=== PATIENT | male | born 1980 | race Two or more races ===

== ENCOUNTER 2021-06-22 19:58 | Emergency (ER) | payer MEDICAID, OTHER ==
[~2021-06-22] VITALS: Ht 175.3 cm; Wt 102.1 kg
[2021-06-22 20:12] VITALS: BP 145/96
[2021-06-22 22:01] LABS: Basophils # (auto) 0 10 ^3/uL (0-0.2); Basophils % (auto) 0.3 % (0.0-2.0); Eosinophils # (auto) 0 10 ^3/uL (0-0.8); Hemoglobin 13.7 g/dL (13.5-17.5); Lymphocytes # (auto) 1.1 10 ^3/uL (0.4-5.4); Lymphocytes % (auto) 8.6 % (10.0-50.0); Mean Corpuscular Hemoglobin 31.3 pg (28.0-32.0); Mean Corpuscular Hgb Conc. 33.6 g/dL (32.0-36.0); Mean Corpuscular Volume 93.2 fL (80.0-100.0); Monocytes # (auto) 0.4 10 ^3/uL (0-1.3); Monocytes % (auto) 3.1 % (0.0-12.0); Neutrophils # (auto) 10.7 10 ^3/uL (1.6-8.6); Red Cell Distribution Width 13.6 % (11.8-14.3); White Blood Cell 12.2 10^3/uL (4.4-10.8)
[2021-06-22 22:17] LABS: Calcium 8.6 mg/dL (8.5-10.1); Potassium 4.8 mmol/L (3.5-5.1)
[2021-06-22 22:20] LABS: Albumin 3.8 g/dL (3.4-5.0); BUN/Creatinine Ratio 14.4; Magnesium 2.2 mg/dL (1.6-2.6)
[2021-06-22 22:23] LABS: Bilirubin, Total 0.3 mg/dL (0.2-1.0); Total Protein 7.5 g/dL (6.4-8.2)
== END 2021-06-22 22:13 | disposition left against medical advice (07) ==
LOC: ER 20:00
DX: T40.411A Poisoning by fentanyl or fentanyl analogs, accidental (unintentional), initial encounter (principal); F12.10 Cannabis abuse, uncomplicated; F15.10 Other stimulant abuse, uncomplicated; F11.10 Opioid abuse, uncomplicated; Y92.89 Other specified places as the place of occurrence of the external cause; Z53.29 Procedure and treatment not carried out because of patient's decision for other reasons
CPT/HCPCS: 36415; 80053; 80320; 82550; 83735; 85025

== ENCOUNTER → 2021-12-01 | Emergency (ER) | payer SELFPAY ==
[~2021-12-01] VITALS: Ht 175.3 cm; Wt 102.1 kg
[~2021-12-01] MED LIST: CEPH500C PO; IBUP800T27 PO; SULF400T11 PO
[2021-12-01 18:03] VITALS: BP 142/88
== END | disposition left against medical advice (07) ==
LOC: ER 17:57
DX: L02.611 Cutaneous abscess of right foot (principal); Z53.21 Procedure and treatment not carried out due to patient leaving prior to being seen by health care provider

== ENCOUNTER 2021-12-02 15:34 | Emergency (ER) | payer SELFPAY ==
[~2021-12-02] VITALS: Ht 175.3 cm; Wt 102.1 kg
[2021-12-02] MEDS ORDERED: SULF400T11 PO (15:55)
[2021-12-02] MEDS ORDERED: CEPH500C PO (15:55)
[2021-12-02] MEDS ORDERED: IBUP800T27 PO (15:56)
[2021-12-02 15:57] VITALS: BP 120/92
== END 2021-12-02 16:03 | disposition home or self-care (01) ==
LOC: ER 15:37
DX: S80.862A Insect bite (nonvenomous), left lower leg, initial encounter (principal); S80.861A Insect bite (nonvenomous), right lower leg, initial encounter; F12.10 Cannabis abuse, uncomplicated; F15.10 Other stimulant abuse, uncomplicated; F11.10 Opioid abuse, uncomplicated; F17.200 Nicotine dependence, unspecified, uncomplicated; W57.XXXA Bitten or stung by nonvenomous insect and other nonvenomous arthropods, initial encounter; Y93.89 Activity, other specified; Y92.89 Other specified places as the place of occurrence of the external cause; Y99.8 Other external cause status

== ENCOUNTER 2021-12-17 09:04 | Emergency (ER) | payer SELFPAY ==
[~2021-12-17] VITALS: Ht 175.3 cm; Wt 102.1 kg
[2021-12-17] MEDS ORDERED: cefTRIAXone SOD 1,000 MG VL IM ONE ×2 (09:45)
[2021-12-17] MEDS ORDERED: LIDOCAINE 1% HCL (LOCAL ANESTH.) INJ 20ML MDV ONE (09:46)
[2021-12-17 09:59] VITALS: BP 133/90
== END 2021-12-17 10:06 | disposition home or self-care (01) ==
LOC: ER 09:04
DX: S80.862A Insect bite (nonvenomous), left lower leg, initial encounter (principal); S80.861A Insect bite (nonvenomous), right lower leg, initial encounter; F12.10 Cannabis abuse, uncomplicated; F15.10 Other stimulant abuse, uncomplicated; W57.XXXA Bitten or stung by nonvenomous insect and other nonvenomous arthropods, initial encounter; Y93.89 Activity, other specified; Y92.89 Other specified places as the place of occurrence of the external cause; Y99.8 Other external cause status
CPT/HCPCS: 96372; 99284; J0696; J2001

== ENCOUNTER 2022-01-30 15:07 | Emergency (ER) | payer SELFPAY ==
[~2022-01-30] VITALS: Ht 175.3 cm; Wt 102.1 kg
[2022-01-30 15:11] VITALS: BP 113/95
== END 2022-01-30 16:25 | disposition left against medical advice (07) ==
LOC: ER 15:07
DX: T17.228A Food in pharynx causing other injury, initial encounter (principal); Z53.21 Procedure and treatment not carried out due to patient leaving prior to being seen by health care provider; X58.XXXA Exposure to other specified factors, initial encounter; Y93.89 Activity, other specified; Y92.9 Unspecified place or not applicable; Y99.9 Unspecified external cause status
CPT/HCPCS: 70360

== ENCOUNTER 2022-01-31 16:49 | Emergency (ER) | payer SELFPAY ==
[~2022-01-31] VITALS: Ht 175.3 cm; Wt 102.1 kg
[2022-01-31 17:06] VITALS: BP 144/99
== END 2022-01-31 20:16 | disposition home or self-care (01) ==
LOC: ER 16:49
DX: J02.9 Acute pharyngitis, unspecified (principal)

== ENCOUNTER 2022-08-09 12:23 | Emergency (ER) | payer SELFPAY ==
[~2022-08-09] VITALS: Ht 175.3 cm; Wt 82.0 kg
[2022-08-09 12:59] VITALS: BP 146/91
[2022-08-09 14:01] LABS: Basophils # (auto) 0 10 ^3/uL (0-0.2); Eosinophils # (auto) 0.1 10 ^3/uL (0-0.8)
[2022-08-09 14:02] LABS: Basophils % (auto) 0.2 % (0.0-2.0); Eosinophils % (auto) 1.2 % (0.0-7.0); Hematocrit 38.9 % (41.0-53.0); Hemoglobin 13.3 g/dL (13.5-17.5); Lymphocytes # (auto) 2.1 10 ^3/uL (0.4-5.4); Lymphocytes % (auto) 28.3 % (10.0-50.0); Mean Corpuscular Hemoglobin 31.3 pg (28.0-32.0); Mean Corpuscular Hgb Conc. 34.1 g/dL (32.0-36.0); Mean Corpuscular Volume 91.8 fL (80.0-100.0); Monocytes # (auto) 0.3 10 ^3/uL (0-1.3); Monocytes % (auto) 4.6 % (0.0-12.0); Neutrophils # (auto) 4.8 10 ^3/uL (1.6-8.6); Neutrophils % (auto) 65.7 % (37.0-80.0); Red Blood Cells 4.23 10^6/uL (4.5-5.90); Red Cell Distribution Width 13.6 % (11.8-14.3); White Blood Cell 7.4 10^3/uL (4.4-10.8)
[2022-08-09 14:20] LABS: Albumin 3.3 g/dL (3.4-5.0); BUN/Creatinine Ratio 10.4; Calcium 8.7 mg/dL (8.5-10.1)
[2022-08-09 14:23] LABS: Bilirubin, Total 0.4 mg/dL (0.2-1.0); Total Protein 7.4 g/dL (6.4-8.2)
[2022-08-09] MEDS ORDERED: DOXY-340 PO (17:00)
[2022-08-09] MEDS ORDERED: cefTRIAXone W LIDOCAINE 1 GM IM IM ONE (17:00)
== END 2022-08-10 05:03 | disposition home or self-care (01) ==
LOC: ER 12:23
DX: L03.116 Cellulitis of left lower limb (principal); L03.113 Cellulitis of right upper limb; F15.10 Other stimulant abuse, uncomplicated; F12.10 Cannabis abuse, uncomplicated; F11.10 Opioid abuse, uncomplicated; Z79.2 Long term (current) use of antibiotics; Z79.1 Long term (current) use of non-steroidal anti-inflammatories (NSAID); Z79.899 Other long term (current) drug therapy; Z59.00 Homelessness unspecified
CPT/HCPCS: 36415; 80053; 83605; 85025; 87040; 99283; J0696

== ENCOUNTER 2023-06-01 17:22 | Emergency (ER) | payer MEDICAID ==
[~2023-06-01] VITALS: Ht 175.3 cm; Wt 92.6 kg
[~2023-06-01 17:22] MED LIST changes: +DOXY1CAP57 PO; +IBUP-1456 PO; -IBUP800T27 PO
[2023-06-01 20:00] VITALS: BP 138/85; PULSE 102; RESP 18; TEMP 98.5; O2SAT 96
[2023-06-01] MEDS ORDERED: TETANUS-DIPTH-ACEL PERTUSSIS 0.5ML SYR Tdap IM ONE (20:30)
[2023-06-01] MEDS ORDERED: CEPH250C PO (21:06)
[2023-06-01] MEDS ORDERED: IBUP-1454 PO (21:07)
== END 2023-06-01 21:28 | disposition home or self-care (01) ==
LOC: ER 17:22
DX: S60.512D Abrasion of left hand, subsequent encounter (principal); L08.9 Local infection of the skin and subcutaneous tissue, unspecified; Z79.2 Long term (current) use of antibiotics; Z79.1 Long term (current) use of non-steroidal anti-inflammatories (NSAID); Z79.899 Other long term (current) drug therapy; X58.XXXD Exposure to other specified factors, subsequent encounter
CPT/HCPCS: 90471; 90715

== ENCOUNTER 2023-10-04 10:40 | Emergency (ER) | payer MEDICAID ==
[~2023-10-04 10:40] MED LIST changes: +CEPH250C PO; +IBUP-1454 PO
[2023-10-05] MEDS ORDERED: CEPH250C PO (12:35)
[2023-10-05] MEDS ORDERED: SULF400T11 PO (12:35)
== END 2023-10-04 11:51 | disposition left against medical advice (07) ==
LOC: ER 10:40
DX: Z48.00 Encounter for change or removal of nonsurgical wound dressing (principal); Z53.21 Procedure and treatment not carried out due to patient leaving prior to being seen by health care provider

== ENCOUNTER 2023-10-05 11:46 | Emergency (ER) | payer MEDICAID ==
[~2023-10-05] VITALS: Ht 175.3 cm; Wt 85.7 kg
[2023-10-05 12:16] VITALS: BP 130/84; PULSE 104; RESP 16; TEMP 97.2; O2SAT 96
[2023-10-05] MEDS ORDERED: CEPH250C PO (12:35)
[2023-10-05] MEDS ORDERED: SULF400T11 PO (12:35)
[2023-10-05] MEDS ORDERED: cefTRIAXone SOD 1,000 MG VL IM ONE (12:45)
== END 2023-10-05 12:46 | disposition home or self-care (01) ==
LOC: ER 11:46
DX: S80.862A Insect bite (nonvenomous), left lower leg, initial encounter (principal); F15.90 Other stimulant use, unspecified, uncomplicated; Z87.891 Personal history of nicotine dependence; Z79.899 Other long term (current) drug therapy; W57.XXXA Bitten or stung by nonvenomous insect and other nonvenomous arthropods, initial encounter; Y93.89 Activity, other specified; Y92.89 Other specified places as the place of occurrence of the external cause; Y99.8 Other external cause status
CPT/HCPCS: 96372; 99283; J0696

== ENCOUNTER 2025-04-09 11:13 | Emergency (ER) | payer MEDICAID ==
[~2025-04-09] VITALS: Ht 175.3 cm; Wt 92.2 kg
[2025-04-09] MEDS ORDERED: GENT0.3S10 LEFTEYE (11:35)
--- NOTE | 2025-04-09 11:36 | ED.PDOC ---
History of Present Illness(SKN HPI Comments This is a 44 year old male presenting to the ED with chief complaint of spider bite. Patient reports that he woke up this morning with a spider on his left eye, smashing it, but he had been bitten. Patient relays that he started to experience worsening swelling and redness for the past 3 hours to his left eyelid. Patient denies any N/V, fever, chills, bleeding, or drainage. Time Seen by MD: 11:33 Primary Care Provider: NONE History of Present Illness: Nurses Notes, Medications, Allergies Allergies: Coded Allergies: NO KNOWN ALLERGIES (Unverified , 05/30/16) Home Meds Active Scripts Gentamicin Sulfate (Gentamicin Sulfate) 0.3 % Judy, 1 DROP LEFTEYE QID, #10 ML Prov:ALEC CLAIRE MD 04/09/25 Cephalexin (KEFLEX CAPSULE) 250 Mg Cp, 1 CAP PO QID for 7 Days, #28 CAP Prov:OMARI JONES 10/05/23 Sulfamethoxazole-Trimethoprim (Bactrim) 1 Tab Tab, 1 TAB PO BID, #20 TAB Prov:OMARI JONES 10/05/23 Ibuprofen (Ibuprofen) 600 Mg Tab, 1 TAB PO Q6HP PRN, #20 TAB Prov:CHAYA ZHANG PAC 06/01/23 Doxycycline Monohydrate (Doxycycline Monohydrate) 100 Mg Cap, 1 CAP PO BID for 10 Days, #20 CAP Prov:MARTIN RODRIGUES DO 08/09/22 Ibuprofen (Ibuprofen) 800 Mg Tab, 800 MG PO Q8HP PRN for 10 Days, #30 TAB Prov:OMARI JONES 12/02/21 Cephalexin Monohydrate (Cephalexin) 500 Mg Cap, 500 MG PO QID for 10 Days, #40 CAP Prov:OMARI JONES 12/02/21 Information Source: Patient Mode of Arrival: Ambulatory Severity: Moderate Timing: Hours Duration: Since onset Prehospital treatment: None Location: Eyes Mechanism: Spider Occurence: Outdoors Object: None Condition of Object: None Retained Foreign Body: No Wound Type: None Immunization Status of Animal: NA Tetanus: Unknown Associated Signs and Symptoms: Redness, Swelling Past Medical History PAST MEDICAL HISTORY: Denies Surgical History: Denies all surgeries Family History Family History: Reviewed,noncontributory to illness Social History Smoker: Cigarettes, Less Than 1 Pack/Day Alcohol: Denies ETOH Use, Occasionally Drugs: Heroin, Marijuana, Methamphetamine Lives In: Homeless Constitutional: denies: chills, diaphoresis, fatigue, fever, malaise, sweats, weakness, others EENTM: denies: blurred vision, double vision, ear bleeding, ear discharge, ear drainage, ear pain, ear ringing, eye pain, eye redness, hearing loss, mouth pain, mouth swelling, nasal discharge, nose bleeding, nose congestion, nose pain, photophobia, tearing, throat pain, throat swelling, voice changes, others Respiratory: denies: cough, hemoptysis, orthopnea, SOB at rest, shortness of b reath, SOB with excertion, stridor, wheezing, others Cardiovascular: denies: chest pain, dizzy spells, diaphoresis, Dyspnea on exertion, edema, irregular heart beat, left arm pain, lightheadedness, palpitations, PND, syncope, others Gastrointestinal: denies: abdomen distended, abdominal pain, blood streaked bowels, constipated, diarrhea, dysphagia, difficulty swallowing, hematemesis, melena, nausea, poor appetite, poor fluid intake, rectal bleeding, rectal pain, vomiting, others Genitourinary: denies: burning, dysuria, flank pain, frequency, hematuria, incontinence, penile discharge, penile sore, pain, testicle pain, testicle swelling, urgency, others Neurological: denies: dizziness, fainting, headache, left sided numbness, left sided weakness, numbness, paresthesia, pre-existing deficit, right sided numbness, right sided weakness, seizure, speech problems, tingling, tremors, weakness, others Musculoskeletal: denies: back pain, gout, joint pain, joint swelling, muscle pain, muscle stiffness, neck pain, others Integumetry: reports: others (Swelling and redness to left eyelid); denies: bruises, change in color, change in hair/nails, dryness, laceration, lesions, lumps, rash, wounds Allergic/Immunocompromised: denies: Difficulty Healing, Frequent Infections, Hives, Itching, others Hematologic/Lymphatic: denies: anemia, blood clots, easy bleeding, easy bruising, swollen glands, others Endocrine: denies: excessive hunger, excessive sweating, excessive thirst, excessive urination, flushing, intolerance to cold, intolerance to heat, unexplained weight gain, unexplained weight loss, others Psychiatric: denies: anxiety, bipolar disorder, depression, hopeless, panic disorder, schizophrenia, sleepless, suicidal, others All Other Systems: Reviewed and Negative Physical Exam General Appearance: No Apparent Distress HEENT: Pharynx Normal, TMs Normal, Other (Left conjunctivitis with significant redness and pain) Neck: Full Range of Motion, Non-Tender, Normal, Normal Inspection Respiratory: Chest Non-Tender, Lungs Clear, No Accessory Muscle Use, No Respiratory Distress, Normal Breath Sounds Cardiovascular: No Edema, No JVD, No Murmur, No Gallop, Normal Peripheral Pulses, Regular Rate/Rhythm Breast Exam: Deferred Gastrointestinal: No Organomegaly, Non Tender, No Pulsatile Mass, Normal Bowel Sounds, Soft Genitalia: Deferred Pelvic: Deferred Rectal: Deferred Extremities: No calf tenderness, Normal capillary refill, Normal inspection, Normal range of motion, Non-tender, No pedal edema Musculoskeletal : Apperance: Normal Neurologic: Alert, coding assistant II-XII nml as Tested, No Motor Deficits, Normal Affect, Normal Mood, No Sensory Deficits Cerebellar Function: Normal Reflexes: Normal Skin: Dry, Normal Color, Warm Lymphatic: No Adenopathy Was a procedure done? Was a procedure done?: No Differential Diagnosis (INTG) Differential Diagnosis: Other (Conjunctivitis) X-Ray, Labs, Meds, VS The patient had tetracaine two drops to the left eye The patient is being discharged with gentamicin for a left eye conjunctivitis The patient will follow up with the primary care doctor The patient will return to the emergency department's condition worsens Time of 1ST Reevaluation: 11:46 Reevaluation 1ST: Unchanged Patient Education/Counseling: Diagnosis, Treatment, Prognosis, Need For Follow Up Family Education/Counseling: No Family Present SEPSIS Sepsis Screen Physician Orders Tetracaine 0.5% Opth Soln (Tetracaine 0. (04/09/25 11:45) Departure 1 Departure Time of Disposition: 11:46 Impression: Primary Impression: Conjunctivitis, left eye Qualified Codes: H10.32 - Unspecified acute conjunctivitis, left eye Disposition: HOME / SELF CARE / HOMELESS Condition: Fair e-Prescriptions Gentamicin Sulfate (Gentamicin Sulfate) 0.3 % Judy 1 DROP LEFTEYE QID, #10 ML Prov: ALEC CLAIRE MD 04/09/25 Discharged With: Self Critical Care Note Critical Care Time?: No Stability Stability form required: No Heart Score Heart Score: Heart Score Response (Comments) Value History N/A 0 EKG N/A 0 Age N/A 0 Risk Factors N/A 0 Troponin N/A 0 Total 0 I personally scribed for ALEC CLAIRE MD ([email or web address]) on 04/09/25 at 11:36. Electronically submitted by Nehemias Lee ([email or web address]). ALEC CLAIRE MD Apr 09, 2025 11:36
[2025-04-09] MEDS: TETRACAINE HCL 0.5% OPTH(EYE) SOLN 4ML LEFTEYE ONE (13:58)
[2025-04-09] MEDS: IBUPROFEN 600 MG TAB PO ONE (14:07)
[2025-04-09 14:08] VITALS: BP 153/86; PULSE 65; RESP 20; TEMP 97.9; O2SAT 100
== END 2025-04-09 14:36 | disposition home or self-care (01) ==
LOC: ER 11:13
DX: H10.32 Unspecified acute conjunctivitis, left eye (principal); F17.210 Nicotine dependence, cigarettes, uncomplicated

== ENCOUNTER 2025-08-02 13:54 | Emergency (ER) | payer MEDICAID ==
[~2025-08-02] VITALS: Ht 175.3 cm; Wt 80.3 kg
[~2025-08-02 13:54] MED LIST changes: +GENT0.3S10 LEFTEYE
[2025-08-02 14:00] VITALS: BP 134/95; PULSE 80; RESP 19; TEMP 97.6; O2SAT 96
--- NOTE | 2025-08-02 15:13 | ED.PDOC ---
History of Present Illness HPI Comments 45 y.o male presents to the ED for a chief complaint of left arm numbness. Patient is a very poor historian, states he woke up on the floor and walked to the ED with c/o of the numbness. However, patient reported to triage nurse that he had a seizure but was already feeling the left arm numbness prior. He ment ioned history of seizure but later declined on assessment and states he is not on any medication at this time. He denies any head aches, vision changes, nausea, vomiting, chest pain, SOB, or focal deficits. He is ambulatory and alert A&O x4. Chief Complaint: Seizure Time Seen by MD: 14:45 Primary Care Provider: NONE Reviewed Notes: Nurses Notes, Medications, Allergies Allergies: Coded Allergies: NO KNOWN ALLERGIES (Unverified , 05/30/16) Home Meds Active Scripts Gentamicin Sulfate (Gentamicin Sulfate) 0.3 % Judy, 1 DROP LEFTEYE QID, #10 ML Prov:ALEC CLAIRE MD 04/09/25 Cephalexin (KEFLEX CAPSULE) 250 Mg Cp, 1 CAP PO QID for 7 Days, #28 CAP Prov:OMARI JONES 10/05/23 Sulfamethoxazole-Trimethoprim (Bactrim) 1 Tab Tab, 1 TAB PO BID, #20 TAB Prov:OMARI JONES 10/05/23 Ibuprofen (Ibuprofen) 600 Mg Tab, 1 TAB PO Q6HP PRN, #20 TAB Prov:CHAYA ZHANG PAC 06/01/23 Doxycycline Monohydrate (Doxycycline Monohydrate) 100 Mg Cap, 1 CAP PO BID for 10 Days, #20 CAP Prov:MARTIN RODRIGUES DO 08/09/22 Ibuprofen (Ibuprofen) 800 Mg Tab, 800 MG PO Q8HP PRN for 10 Days, #30 TAB Prov:OMARI JONES 12/02/21 Cephalexin Monohydrate (Cephalexin) 500 Mg Cap, 500 MG PO QID for 10 Days, #40 CAP Prov:OMARI JONES 12/02/21 Information Source: Patient Mode of Arrival: Ambulatory Severity: Moderate Timing: Hours Duration: Since onset Past Medical History PAST MEDICAL HISTORY: Denies Surgical History: Denies all surgeries Family History Family History: Reviewed,noncontributory to illness Social History Smoker: Cigarettes, Less Than 1 Pack/Day Alcohol: Denies ETOH Use, Occasionally Drugs: Heroin, Marijuana, Methamphetamine Lives In: Homeless Constitutional: denies: chills, diaphoresis, fatigue, fever, malaise, sweats, weakness, others EENTM: denies: blurred vision, double vision, ear bleeding, ear discharge, ear drainage, ear pain, ear ringing, eye pain, eye redness, hearing loss, mouth pain, mouth swelling, nasal discharge, nose bleeding, nose congestion, nose pain, photophobia, tearing, throat pain, throat swelling, voice changes, others Respiratory: denies: cough, hemoptysis, orthopnea, SOB at rest, shortness of breath, SOB with excertion, stridor, wheezing, others Cardiovascular: denies: chest pain, dizzy spells, diaphoresis, Dyspnea on exertion, edema, irregular heart beat, left arm pain, lightheadedness, palpitations, PND, syncope, others Gastrointestinal: denies: abdomen distended, abdominal pain, blood streaked bowels, constipated, diarrhea, dysphagia, difficulty swallowing, hematemesis, melena, nausea, poor appetite, poor fluid intake, rectal bleeding, rectal pain, vomiting, others Genitourinary: denies: burning, dysuria, flank pain, frequency, hematuria, incontinence, penile discharge, penile sore, pain, testicle pain, testicle swelling, urgency, others Neurological: reports: numbness (left arm ); denies: dizziness, fainting, headache, left sided numbness, left sided weakness, paresthesia, pre-existing deficit, right sided numbness, right sided weakness, seizure, speech problems, tingling, tremors, weakness, others Musculoskeletal: denies: back pain, gout, joint pain, joint swelling, muscle pain, muscle stiffness, neck pain, others Integumetry: denies: bruises, change in color, change in hair/nails, dryness, laceration, lesions, lumps, rash, wounds, others Allergic/Immunocompromised: denies: Difficulty Healing, Frequent Infections, Hives, Itching, others Hematologic/Lymphatic: denies: anemia, blood clots, easy bleeding, easy bruising, swollen glands, others Endocrine: denies: excessive hunger, excessive sweating, excessive thirst, excessive urination, flushing, intolerance to cold, intolerance to heat, unexplained weight gain, unexplained weight loss, others Psychiatric: denies: anxiety, bipolar disorder, depression, hopeless, panic disorder, schizophrenia, sleepless, suicidal, others All Other Systems: Reviewed and Negative Physical Exam General Appearance: Moderate Distress HEENT: Normal ENT Inspection, Pharynx Normal, TMs Normal Neck: Full Range of Motion, Non-Tender, Normal, Normal Inspection Respiratory: Chest Non-Tender, Lungs Clear, No Accessory Muscle Use, No Respiratory Distress, Normal Breath Sounds Cardiovascular: No Edema, No JVD, No Murmur, No Gallop, Normal Peripheral Pulses, Regular Rate/Rhythm Breast Exam: Deferred Gastrointestinal: No Organomegaly, Non Tender, No Pulsatile Mass, Normal Bowel Sounds, Soft Genitalia: Deferred Pelvic: Deferred Rectal: Deferred Extremities: No calf tenderness, Normal capillary refill, Normal inspection, Normal range of motion, Non-tender, No pedal edema Musculoskeletal : Apperance: Normal Neurologic: Alert, plate grinder II-XII nml as Tested, No Motor Deficits, Normal Affect, Normal Mood, No Sensory Deficits Cerebellar Function: Normal Reflexes: Normal Skin: Dry, Normal Color, Warm Peripheral Pulses: 3+ Radial (R), 3+ Radial (L) Lymphatic: No Adenopathy Was a procedure done? Was a procedure done?: No Differential Dx Considerations may include: Dehydration X-Ray, Labs, Meds, VS Vital Signs Date Time Temp Pulse Resp B/P (MAP) Pulse Ox O2 Delivery O2 Flow Rate FiO2 08/02/25 14:00 97.6 80 19 134/95 96 97.6 Patient alert. Vitals stable. Answering all questions. Ambulating. Saturation pristine on room air. Blood pressure within normal limits. Establish intravenous access. Was given fluids. No head injury. No sign of any distress. No bodily injury. Was told to follow up with his primary care physician. Was told to come back if there is any problem. Time of 1ST Reevaluation: 15:13 Reevaluation 1ST: Unchanged Patient Education/Counseling: Diagnosis, Treatment, Prognosis Family Education/Counseling: No Family Present SEPSIS Sepsis Screen Date sepsis recognized/suspect: Aug 02, 2025 Time Sepsis recognized/suspect: 1400 Recent Procedure: No On Antibiotic Therapy: No Respiratory Rate >20: No Heart Rate >90: No Temp<36 C (96.8 F) or >38.3 C: No SBP <90 or MAP <65 mmHG: No New Acute Mental Status Change: No Is the patient on CPAP, BIPAP,: No Physician Orders Sodium Chloride 0.9% (08/02/25 15:15) Vital Signs Date Time Temp Pulse Resp B/P (MAP) Pulse Ox O2 Delivery O2 Flow Rate FiO2 08/02/25 14:00 97.6 80 19 134/95 96 97.6 Departure 1 Departure Time of Disposition: 15:26 Impression: Primary Impression: Dehydration Disposition: 01 HOME / SELF CARE / HOMELESS Condition: Good Discharged With: Self Critical Care Note Critical Care Time?: No Stability Stability form required: No I personally scribed for MADHU ALONSO MD ([email or web address]) on 08/02/25 at 15:13. Electronically submitted by Ofelia Perez ([facility]). MADHU ALONSO MD Aug 02, 2025 15:13
[2025-08-02] MEDS: SODIUM CHLORIDE 0.9% 1,000 ML IV ONE (15:15)
== END 2025-08-02 17:28 | disposition home or self-care (01) ==
LOC: ER 13:54
DX: E86.0 Dehydration (principal); F17.210 Nicotine dependence, cigarettes, uncomplicated; Z79.899 Other long term (current) drug therapy; Z59.00 Homelessness unspecified

== ENCOUNTER 2025-08-13 10:47 | Inpatient (IN) | payer MEDICAID ==
[~2025-08-13] VITALS: Ht 175.3 cm; Wt 81.0 kg
[2025-08-13 11:10] VITALS: PULSE 75; RESP 20; O2SAT 95
[2025-08-13 12:00] LABS: Hematocrit 38.5 % (41.0-53.0); Hemoglobin 12.9 g/dL (13.5-17.5); Mean Corpuscular Hemoglobin 31.4 pg (28.0-32.0); Mean Corpuscular Volume 93.5 fL (80.0-100.0); Nucleated Red Blood Cells % 0.1 %
--- NOTE | 2025-08-13 12:04 | DVH ---
EXAM: CT HEAD WITHOUT CONTRAST INDICATION: ams TECHNIQUE: CT of the head without intravenous contrast. Radiation Dose : 1. Head: CT Dose: CTDI volume is 58.69 mGy. Dose-length product is 1039.07 mGy*cm The dose indicators for CT are the volume Computed Tomography (CT) Dose Index (CTDIvol) and the Dose Length Product (DLP), and are measured in units of mGy and mGy-cm, respectively. These indicators are not patient dose, but values generated from the CT scanner acquisition factors. The report includes radiation exposure data for exposures received during this examination. COMPARISON: CT BRAIN on DOS: 02/09/25, NECK FOR SOFT TISSUE on DOS: 01/30/22, NECK on DOS: 01/30/22 FINDINGS: There is no evidence of acute intracranial hemorrhage, extra-axial collection, mass effect, midline s hift, herniation or hydrocephalus. The ventricles, sulci and cisterns are age appropriate. The stock-white differentiation is intact. Mild mucosal opacification of the paranasal sinuses. The surrounding soft tissues and osseous structures are unremarkable. IMPRESSION: No acute intracranial abnormality. Radiation optimization: All CT scans at this facility use at least one of these dose optimization darrel hniques: automated exposure control mA and/or kV adjustment per patient size (includes targeted exam s where dose is matched to clinical indication) or iterative reconstruction.
[2025-08-13 12:08] LABS: Potassium 4.5 mmol/L (3.5-5.1); Sodium 144 mmol/L (136-145)
[2025-08-13 12:09] LABS: Anion Gap 7 (5-15); Carbon Dioxide 28 mmol/L (20-31)
--- NOTE | 2025-08-13 12:09 | DVH ---
EXAM: XY CHEST PORTABLE HISTORY: ams COMPARISON: XY CHEST XRAY 1 VIEW on DOS: 10/30/24 TECHNIQUE: Portable upright AP views of the chest were performed. FINDINGS: The right lung base is not fully imaged here. No pneumothorax, consolidative infiltrates, or pulmonar y edema. The heart is not enlarged. There is mild thoracic degenerative disc disease. No fractures a re identified about the bony thorax. IMPRESSION: No acute intrathoracic process.
[2025-08-13 12:13] LABS: Calcium 8.5 mg/dL (8.7-10.4)
[2025-08-13 12:14] LABS: BUN/Creatinine Ratio 11.8 (10.0-20.0); Blood Urea Nitrogen 12 mg/dL (9-23); Glucose 101 mg/dL (74-106)
[2025-08-13 12:15] LABS: Chloride 109 mmol/L (98-107)
--- NOTE | 2025-08-13 12:23 | ECG ---
[facility] Test Date: 2025-08-13 Test Time: 10:50:20 Pat Name: ZAHIRA LINDSAY Department: [facility] ED Room: 0278T Gender: M Sales Mgr: HECTOR : 1980 Requested By: JAYSHREE HAYS Order Number: [id number] Reading MD: Nishant Mchugh Measurements Intervals [place] Rate: 89 P: 73 FL: 160 QRS: 85 QRSD: 92 T: 60 QT: 368 QTc: 448 Interpretive Statements Sinus rhythm Electronically Signed On 08-18-2025 13:26:48 PST by Nishant Mchugh Please click the below link to view image of tracing.
[2025-08-13 12:58] LABS: Urine Protein, UAD 2+ (Negative)
[2025-08-13] MEDS: ONDANSETRON HCL 4 MG/2 ML VIAL IV PRN (18:12)
[2025-08-13] MEDS: SODIUM CHLORIDE 0.9% 500 ML IV ONE (19:09)
[2025-08-13 20:00] VITALS: PULSE 60; RESP 18; O2SAT 95
[2025-08-13 21:09] VITALS: BP 150/103; PULSE 59; RESP 18; TEMP 97.5
[2025-08-13] MEDS ORDERED: TEMAZEPAM 15 MG CAP PO PRN (22:00)
[2025-08-14] VITALS (8 sets, daily range): BP systolic 124–151; BP diastolic 83–97; PULSE 48–64; RESP 18–19; TEMP 97.5–99; O2SAT 96–100
[2025-08-14 06:26] LABS: Chloride 105 mmol/L (98-107); Potassium 3.9 mmol/L (3.5-5.1); Sodium 138 mmol/L (136-145)
[2025-08-14 06:27] LABS: Anion Gap 7 (5-15); Carbon Dioxide 26 mmol/L (20-31)
[2025-08-14 06:32] LABS: BUN/Creatinine Ratio 10.3 (10.0-20.0); Blood Urea Nitrogen 9 mg/dL (9-23); Calcium 8.0 mg/dL (8.7-10.4); Glucose 96 mg/dL (74-106)
--- NOTE | 2025-08-14 11:09 | ED.PDOC ---
Altered Mental Status HPI Comments This is a 45 year old male PERLAA presenting to the ED with chief complaint of ALOC. 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 EMS relays that the patient admitted to methamphetamine use yesterday along with having generalized weakness. Patient unable to answer questions and is confused at this time. Chief Complaint: ALOC Time Seen by MD: 11:33 Primary Care Provider: NONE Reviewed Notes: Nurses Notes, Deputy Sheriff/Investigator Notes, Medications, Allergies Allergies: Coded Allergies: NO KNOWN ALLERGIES (Unverified , 05/30/16) Home Meds Active Scripts Gentamicin Sulfate (Gentamicin Sulfate) 0.3 % Judy, 1 DROP LEFTEYE QID, #10 ML Prov:ALEC CLAIRE MD 04/09/25 Cephalexin (KEFLEX CAPSULE) 250 Mg Cp, 1 CAP PO QID for 7 Days, #28 CAP Prov:OMARI JONES 10/05/23 Sulfamethoxazole-Trimethoprim (Bactrim) 1 Tab Tab, 1 TAB PO BID, #20 TAB Prov:OMARI JONES 10/05/23 Ibuprofen (Ibuprofen) 600 Mg Tab, 1 TAB PO Q6HP PRN, #20 TAB Prov:CHAYA ZHANG PAC 06/01/23 Doxycycline Monohydrate (Doxycycline Monohydrate) 100 Mg Cap, 1 CAP PO BID for 10 Days, #20 CAP Prov:MARTIN RODRIGUES DO 08/09/22 Ibuprofen (Ibuprofen) 800 Mg Tab, 800 MG PO Q8HP PRN for 10 Days, #30 TAB Prov:OMARI JONES 12/02/21 Cephalexin Monohydrate (Cephalexin) 500 Mg Cap, 500 MG PO QID for 10 Days, #40 CAP Prov:OMARI JONES 12/02/21 Information Source: Patient, Emergency Med Personnel Mode of Arrival: EMS Severity: Severe Timing: Hours Duration: Since onset Prehospital treatment: None Quality: None Past Medical History PAST MEDICAL HISTORY: Denies Surgical History: Denies all surgeries Family History Family History: Reviewed,noncontributory to illness Social History Smoker: Cigarettes, Less Than 1 Pack/Day Alcohol: Denies ETOH Use, Occasionally Drugs: Heroin, Marijuana, Methamphetamine Lives In: Homeless Constitutional: reports: diaphoresis; denies: chills, fatigue, fever, malaise, sweats, weakness, others EENTM: denies: blurred vision, double vision, ear bleeding, ear discharge, ear drainage, ear pain, ear ringing, eye pain, eye redness, hearing loss, mouth pain, mouth swelling, nasal discharge, nose bleeding, nose congestion, nose pain, photophobia, tearing, throat pain, throat swelling, voice changes, others Respiratory: denies: cough, hemoptysis, orthopnea, SOB at rest, shortness of breath, SOB with excertion, stridor, wheezing, others Cardiovascular: denies: chest pain, dizzy spells, diaphoresis, Dyspnea on exertion, edema, irregular heart beat, left arm pain, lightheadedness, palpitations, PND, syncope, others Gastrointestinal: denies: abdomen distended, abdominal pain, blood streaked bowels, constipated, diarrhea, dysphagia, difficulty swallowing, hematemesis, melena, nausea, poor appetite, poor fluid intake, rectal bleeding, rectal pain, vomiting, others Genitourinary: denies: burning, dysuria, flank pain, frequency, hematuria, incontinence, penile discharge, penile sore, pain, testicle pain, testicle swelling, urgency, others Neurological: denies: dizziness, fainting, headache, left sided numbness, left sided weakness, numbness, paresthesia, pre-existing deficit, right sided numbness, right sided weakness, seizure, speech problems, tingling, tremors, weakness, others Musculoskeletal: denies: back pain, gout, joint pain, joint swelling, muscle pain, muscle stiffness, neck pain, others Integumetry: denies: bruises, change in color, change in hair/nails, dryness, laceration, lesions, lumps, rash, wounds, others Allergic/Immunocompromised: denies: Difficulty Healing, Frequent Infections, Hives, Itching, others Hematologic/Lymphatic: denies: anemia, blood clots, easy bleeding, easy bruising, swollen glands, others Endocrine: denies: excessive hunger, excessive sweating, excessive thirst, excessive urination, flushing, intolerance to cold, intolerance to heat, unexplained weight gain, unexplained weight loss, others Psychiatric: denies: anxiety, bipolar disorder, depression, hopeless, panic disorder, schizophrenia, sleepless, suicidal, others Unable to Obtain due to: Altered Mental Status All Other Systems: Reviewed and Negative Physical Exam General Appearance: No Apparent Distress, Other (Confused) HEENT: Normal ENT Inspection, Pharynx Normal, TMs Normal Neck: Full Range of Motion, Non-Tender, Normal, Normal Inspection Respiratory: Chest Non-Tender, Lungs Clear, No Accessory Muscle Use, No Respiratory Distress, Normal Breath Sounds Cardiovascular: No Edema, No JVD, No Murmur, No Gallop, Normal Peripheral Pulses, Regular Rate/Rhythm Breast Exam: Deferred Gastrointestinal: No Organomegaly, Non Tender, No Pulsatile Mass, Normal Bowel Sounds, Soft Genitalia: Deferred Pelvic: Deferred Rectal: Deferred Extremities: No calf tenderness, Normal capillary refill, Normal inspection, Normal range of motion, Non-tender, No pedal edema Musculoskeletal : Apperance: Normal Neurologic: Alert, emergency planner II-XII nml as Tested, No Motor Deficits, Normal Affect, Normal Mood, No Sensory Deficits Cerebellar Function: Normal Reflexes: Normal Skin: Diaphoresis, Normal Color, Warm Lymphatic: No Adenopathy Was a procedure done? Was a procedure done?: No Differential Diagnosis (ALOC) Differential Diagnosis: Dehydration, Drug Overdose X-Ray, Labs, Meds, VS Vital Signs Date Time Temp Pulse Resp B/P (MAP) Pulse Ox O2 Delivery O2 Flow Rate FiO2 08/13/25 16:00 97.8 58 20 135/102 (113) 95 97.8 08/13/25 12:00 97.7 60 20 129/79 (96) 97 97.7 08/13/25 11:40 98.1 89 18 141/99 98 98.1 08/13/25 11:10 97.6 75 20 127/78 (94) 95 97.6 08/13/25 11:10 75 20 95 Room Air* 0 21 08/13/25 10:52 89 Lab Test 08/13/25 14:30 08/13/25 12:47 08/13/25 11:33 08/13/25 11:15 Range/Units Troponin I High Sensitivity 67 *H 57 *H 50 </=54 ng/L White Blood Count 6.5 4.4-10.8 10^3/uL Red Blood Count 4.11 L 4.5-5.90 10^6/uL Hemoglobin 12.9 L 13.5-17.5 g/dL Hematocrit 38.5 L 41.0-53.0 % Mean Corpuscular Volume 93.5 80.0-100.0 fL Mean Corpuscular Hemoglobin 31.4 28.0-32.0 pg Mean Corpuscular Hemoglobin Concent 33.6 32.0-36.0 g/dL Red Cell Distribution Width 14.0 11.8-14.3 % Platelet Count 424 140-450 10^3/uL Mean Platelet Volume 7.2 6.9-10.8 fL Neutrophils (%) (Auto) 68.8 37.0-80.0 % Lymphocytes (%) (Auto) 22.4 10.0-50.0 % Monocytes (%) (Auto) 7.2 0.0-12.0 % Eosinophils (%) (Auto) 0.6 0.0-7.0 % Basophils (%) (Auto) 1.0 0.0-2.0 % Neutrophils # (Auto) 4.5 1.6-8.6 10 ^3/uL Lymphocytes # (Auto) 1.5 0.4-5.4 10 ^3/uL Monocytes # (Auto) 0.5 0-1.3 10 ^3/uL Eosinophils # (Auto) 0 0-0.8 10 ^3/uL Basophils # (Auto) 0.1 0-0.2 10 ^3/uL Nucleated Red Blood Cells 0.1 % Sodium Level 144 136-145 mmol/L Potassium Level 4.5 3.5-5.1 mmol/L Chloride Level 109 H 98-107 mmol/L Carbon Dioxide Level 28 20-31 mmol/L Anion Gap 7 5-15 Blood Urea Nitrogen 12 9-23 mg/dL Creatinine 1.02 0.700-1.30 mg/dL Glomerular Filtration Rate Calc 94 >90 mL/min BUN/Creatinine Ratio 11.8 10.0-20.0 Serum Glucose 101 74-106 mg/dL Lactic Acid Level 1.5 0.4-2.0 mmol/L Calcium Level 8.5 L 8.7-10.4 mg/dL B-Type Natriuretic Peptide 101.85 0-100 pg/mL Urine Color Yellow Yellow Urine Clarity Hazy H Clear Urine pH 6.5 5.0-9.0 Urine Specific [place] 1.024 1.001-1.035 Urine Protein 2+ H Negative Urine Ketones Trace Negative Urine Blood Negative Negative /uL Urine Nitrite Negative Negative Urine Bilirubin Negative Negative Urine Urobilinogen 2 H Negative mg/dL Urine Leukocyte Esterase Negative Negative /uL Urine RBC 4 0 - 3 /hpf Urine Microscopic WBC 5 H 0-3 /HPF Urine Squamous Epithelial Cells Few <5 /hpf Urine Bacteria None seen None Seen /hpf Urine Hyaline Casts Few 0 - 2 /lpf Urine Sperm Present None Seen /hpf Urine Glucose Normal Normal mg/dL [facility] [id number] [place] [address] Ph: [phone] DIAGNOSTIC IMAGING Diagnostic Imaging Report : [id number] Signed PATIENT: ZAHIRA LINDSAY ACCT: [id number] UNIT: [id number] : 1980 LOC: ER ROOM / BED: / AGE / SEX: 45 / M ADM STATUS: REG ER SERVICE 1124 ORDERING PHYSICIAN: JAYSHREE HAYS MD PROCEDURE(s): HWOCT - HEAD WITHOUT CONTRAST REASON: ams ORDER NUMBER(s): [id number], ACCESSION NUMBER(s): [id number] EXAM: CT HEAD WITHOUT CONTRAST INDICATION: ams TECHNIQUE: CT of the head without intravenous contrast. Radiation Dose : 1. Head: CT Dose: CTDI volume is 58.69 mGy. Dose-length product is 1039.07 mGy*cm The dose indicators for CT are the volume Computed Tomography (CT) Dose Index (CTDIvol) and the Dose Length Product (DLP), and are measured in units of mGy and mGy-cm, respectively. These indicators are not patient dose, but values generated from the CT scanner acquisition factors. The report includes radiation exposure data for exposures received during this examination. COMPARISON: CT BRAIN on DOS: 02/09/25, NECK FOR SOFT TISSUE on DOS: 01/30/22, NECK on DOS: 01/30/22 FINDINGS: There is no evidence of acute intracranial hemorrhage, extra-axial collection, mass effect, midline shift, herniation or hydrocephalus. The ventricles, sulci and cisterns are age appropriate. The stock-white differentiation is intact. Mild mucosal opacification of the paranasal sinuses. The surrounding soft tissues and osseous structures are unremarkable. IMPRESSION: No acute intracranial abnormality. Radiation optimization: All CT scans at this facility use at least one of these dose optimization techniques: automated exposure control mA and/or kV adjustment per patient size (includes targeted exams where dose is matched to clinical indication) or iterative reconstruction. ATED BY: JONATHON COVINGTON MD DICTATED DATE/TIME: 08/13/251201 SIGNED BY: JONATHON COVINGTON MD SIGNED DATE/TIME: 08/13/251201 CC: [place] [id number] Ph: [phone] DIAGNOSTIC IMAGING Diagnostic Imaging Report : [id number] Signed PATIENT: ZAHIRA LINDSAY ACCT: [id number] UNIT: [id number] : 1980 LOC: ER ROOM / BED: / AGE / SEX: 45 / M ADM STATUS: REG ER SERVICE 23 ORDERING PHYSICIAN: JAYSHREE HAYS MD PROCEDURE(s): CXRP - CHEST PORTABLE REASON: ams ORDER NUMBER(s): [id number], ACCESSION NUMBER(s): [id number] EXAM: XY CHEST PORTABLE HISTORY: ams COMPARISON: XY CHEST XRAY 1 VIEW on DOS: 10/30/24 TECHNIQUE: Portable upright AP views of the chest were performed. FINDINGS: The right lung base is not fully imaged here. No pneumothorax, consolidative infiltrates, or pulmonary edema. The heart is not enlarged. There is mild thoracic degenerative disc disease. No fractures are identified about the bony thorax. IMPRESSION: No acute intrathoracic process. ATED BY: DONG MCLAUGHLIN MD DICTATED DATE/TIME: 08/13/251206 SIGNED BY: DONG MCLAUGHLIN MD SIGNED DATE/TIME: 08/13/251206 CC: Images Reviewed?: Images reviewed and evaluated by me Time of 1ST Reevaluation: 12:31 Reevaluation 1ST: Unchanged Patient Education/Counseling: Diagnosis, Treatment Family Education/Counseling: No Family Present SEPSIS Sepsis Screen Physician Orders Chest Portable (08/13/25 11:24) Head Without Contrast (08/13/25 11:24) Electrocardigram (08/13/25 12:24) Electrocardigram (08/13/25 14:24) Vital Signs Date Time Temp Pulse Resp B/P (MAP) Pulse Ox O2 Delivery O2 Flow Rate FiO2 08/13/25 16:00 97.8 58 20 135/102 (113) 95 97.8 08/13/25 12:00 97.7 60 20 129/79 (96) 97 97.7 08/13/25 11:40 98.1 89 18 141/99 98 98.1 08/13/25 11:10 97.6 75 20 127/78 (94) 95 97.6 08/13/25 11:10 75 20 95 Room Air* 0 21 08/13/25 10:52 89 Laboratory Tests Test 08/13/25 11:33 Lactic Acid Level 1.5 mmol/L (0.4-2.0) White Blood Count 6.5 10^3/uL (4.4-10.8) Departure 1 Departure Time of Disposition: 16:20 (Patient presented with syncope today and should be admitted. Data: 1. I ordered and reviewed the result of at least 3 labs including a CBC, BMP, and troponin. 2. I independently interpreted the following tests: EKG which shows a sinus rhythm a and a chest x-ray which shows benign chest and a CT head which shows benign brain.Risk:This patient has a high risk of morbidity due to further diagnostic testing or treatment and may suffer from an acute cardiac, neurologic, or infectious disorder. Rationale: Patient should be admitted to the hospital for further management.) Impression: Primary Impression: Acute metabolic encephalopathy Additional Impressions: Acute dyspnea Acute chest pain Elevated troponin Disposition: ADMITTED INPATIENT Admit to: Tele Condition: Guarded Critical Care Note Critical Care Time?: Yes Critical care comment: Acute chest pain Authorized and Performed by: Jayshree Hays MD Total critical care time: Approximately 38 minutes Due to a high probability of clinically significant, life threatening deterioration, the patient required my highest level of preparedness to intervene emergently and I personally spent this critical care time directly and personally managing the patient. This critical care time included obtaining a history; examining the patient; pulse oximetry; ordering and review of studies; arranging urgent treatment with development of a management plan; evaluation of patient's response to treatment; frequent reassessment; and, discussions with other providers. This critical care time was performed to assess and manage the high probability of imminent, life-threatening deterioration that could result in multi-organ failure. It was exclusive of separately billable procedures and treating other patients and teaching time. Please see my other sections and the rest of the note for further information on patient assessment and treatment. Stability Stability form required: No Heart Score Heart Score: Heart Score Response (Comments) Value History N/A 0 EKG N/A 0 Age N/A 0 Risk Factors N/A 0 Troponin N/A 0 Total 0 I personally scribed for JAYSHREE HAYS MD ([email or web address]) on 08/13/25 at 11:35. Electronically submitted by Nehemias Lee ([email or web address]). I personally scribed for JAYSHREE HAYS MD ([email or web address]) on 08/13/25 at 15:19. Electronically submitted by Nehemias Lee ([email or web address]). JAYSHREE HAYS MD Aug 13, 2025 11:35
--- NOTE | 2025-08-14 11:21 | DVHHP2 ---
History of Present Illness Reason for Visit: Altered mental History of Present Illness 45-year-old male presents for evaluation of altered mental status. Patient was found today unresponsive by bystanders at a bus stop. EMS was called patient was altered and diaphoretic. Currently he is alert oriented times four. He reports using methamphetamine and marijuana. Denies chest pain or shortness for breath. No dizziness. No other acute complaints reported. Past Medical History Denies Past Surgical History Denies Family History Noncontributory Smoke: <1 pack per day ALCOHOL: occassional Drugs: Marijuana, Heroin, Other (Methamphetamine) Lives: with Family Review of Systems Review of Systems Review of systems are currently negative otherwise addressed in HPI. Allergies: Coded Allergies: NO KNOWN ALLERGIES (Unverified , 05/30/16) Medications Current Medications Medications Dose Ordered Sig/[place]ula Route Start Time Stop Time Status Last Admin Dose Admin Aspirin 81 mg DAILY PO 08/14/25 10:00 UNV Temazepam 15 mg QHSP PRN PO 08/13/25 17:00 UNV Ondansetron HCl 4 mg Q4HP PRN IV 08/13/25 17:00 UNV Acetaminophen 650 mg Q6HP PRN PO 08/13/25 17:00 UNV Exam Vital Signs Vital Signs Date Time Temp Pulse Resp B/P (MAP) Pulse Ox O2 Delivery O2 Flow Rate FiO2 08/13/25 16:00 97.8 58 20 135/102 (113) 95 97.8 08/13/25 11:10 Room Air* 0 21 Exam Review of systems are currently negative otherwise addressed in HPI. Labs/Xrays ORDERING PHYSICIAN: JAYSHREE HAYS MD PROCEDURE(s): CXRP - CHEST PORTABLE REASON: [facility] ORDER NUMBER(s): [id number], ACCESSION NUMBER(s): [id number] EXAM: XY CHEST PORTABLE HISTORY: ams COMPARISON: XY CHEST XRAY 1 VIEW on DOS: 10/30/24 TECHNIQUE: Portable upright AP views of the chest were performed. FINDINGS: The right lung base is not fully imaged here. No pneumothorax, consolidative infiltrates, or pulmonary edema. The heart is not enlarged. There is mild thoracic degenerative disc disease. No fractures are identified about the bony thorax. IMPRESSION: No acute intrathoracic process. RING PHYSICIAN: JAYSHREE HAYS MD PROCEDURE(s): HWOCT - HEAD WITHOUT CONTRAST REASON: ams ORDER NUMBER(s): [id number], ACCESSION NUMBER(s): [id number] EXAM: CT HEAD WITHOUT CONTRAST INDICATION: ams TECHNIQUE: CT of the head without intravenous contrast. Radiation Dose : 1. Head: CT Dose: CTDI volume is 58.69 mGy. Dose-length product is 1039. 07 mGy*cm The dose indicators for CT are the volume Computed Tomography (CT) Dose Index (CTDIvol) and the Dose Length Product (DLP), and are measured in units of mGy and mGy-cm, respectively. These indicators are not patient dose, but values generated from the CT scanner acquisition factors. The report includes radiation exposure data for exposures received during this examination. COMPARISON: CT BRAIN on DOS: 02/09/25, NECK FOR SOFT TISSUE on DOS: 01/30/22, NECK on DOS: 01/30/22 FINDINGS: There is no evidence of acute intracranial hemorrhage, extra-axial collection, mass effect, midline shift, herniation or hydrocephalus. The ventricles, sulci and cisterns are age appropriate. The stock-white differentiation is intact. Mild mucosal opacification of the paranasal sinuses. The surrounding soft tissues and osseous structures are unremarkable. IMPRESSION: No acute intracranial abnormality. Radiation optimization: All CT scans at this facility use at least one of these dose optimization techniques: automated exposure control mA and/or kV adjustment per patient size (includes targeted exams where dose is matched to clinical indication) or iterative reconstruction. Labs Test 08/13/25 14:30 08/13/25 11:33 08/13/25 11:15 Range/Units Troponin I High Sensitivity 67 *H </=54 ng/L White Blood Count 6.5 4.4-10.8 10^3/uL Red Blood Count 4.11 L 4.5-5.90 10^6/uL Hemoglobin 12.9 L 13.5-17.5 g/dL Hematocrit 38.5 L 41.0-53.0 % Mean Corpuscular Volume 93.5 80.0-100.0 fL Mean Corpuscular Hemoglobin 31.4 28.0-32.0 pg Mean Corpuscular Hemoglobin Concent 33.6 32.0-36.0 g/dL Red Cell Distribution Width 14.0 11.8-14.3 % Platelet Count 424 140-450 10^3/uL Mean Platelet Volume 7.2 6.9-10.8 fL Neutrophils (%) (Auto) 68.8 37.0-80.0 % Lymphocytes (%) (Auto) 22.4 10.0-50.0 % Monocytes (%) (Auto) 7.2 0.0-12.0 % Eosinophils (%) (Auto) 0.6 0.0-7.0 % Basophils (%) (Auto) 1.0 0.0-2.0 % Neutrophils # (Auto) 4.5 1.6-8.6 10 ^3/uL Lymphocytes # (Auto) 1.5 0.4-5.4 10 ^3/uL Monocytes # (Auto) 0.5 0-1.3 10 ^3/uL Eosinophils # (Auto) 0 0-0.8 10 ^3/uL Basophils # (Auto) 0.1 0-0.2 10 ^3/uL Nucleated Red Blood Cells 0.1 % Sodium Level 144 136-145 mmol/L Potassium Level 4.5 3.5-5.1 mmol/L Chloride Level 109 H 98-107 mmol/L Carbon Dioxide Level 28 20-31 mmol/L Anion Gap 7 5-15 Blood Urea Nitrogen 12 9-23 mg/dL Creatinine 1.02 0.700-1.30 mg/dL Glomerular Filtration Rate Calc 94 >90 mL/min BUN/Creatinine Ratio 11.8 10.0-20.0 Serum Glucose 101 74-106 mg/dL Lactic Acid Level 1.5 0.4-2.0 mmol/L Calcium Level 8.5 L 8.7-10.4 mg/dL B-Type Natriuretic Peptide 101.85 0-100 pg/mL Urine Color Yellow Yellow Urine Clarity Hazy H Clear Urine pH 6.5 5.0-9.0 Urine Specific [place] 1.024 1.001-1.035 Urine Protein 2+ H Negative Urine Ketones Trace Negative Urine Blood Negative Negative /uL Urine Nitrite Negative Negative Urine Bilirubin Negative Negative Urine Urobilinogen 2 H Negative mg/dL Urine Leukocyte Esterase Negative Negative /uL Urine RBC 4 0 - 3 /hpf Urine Microscopic WBC 5 H 0-3 /HPF Urine Squamous Epithelial Cells Few <5 /hpf Urine Bacteria None seen None Seen /hpf Urine Hyaline Casts Few 0 - 2 /lpf Urine Sperm Present None Seen /hpf Urine Glucose Normal Normal mg/dL SEPSIS Sepsis Screen Date sepsis recognized/suspect: Aug 13, 2025 Time Sepsis recognized/suspect: 1048 Recent Procedure: No On Antibiotic Therapy: No Respiratory Rate >20: No Heart Rate >90: No Temp<36 C (96.8 F) or >38.3 C: No SBP <90 or MAP <65 mmHG: No New Acute Mental Status Change: No Is the patient on CPAP, BIPAP,: No Physician Orders Chest Portable (08/13/25 11:24) Head Without Contrast (08/13/25 11:24) Electrocardigram (08/13/25 12:24) Electrocardigram (08/13/25 14:24) Aspirin Tablet (08/14/25 10:00) Regular Diet (08/13/25 Dinner) Troponin-I Hs (08/13/25 18:00) Basic Metabolic Panel (08/14/25 04:00) Admit (08/13/25 16:52) Temazepam (Restoril) (08/13/25 17:00) Ondansetron Hcl (Zofran) (08/13/25 17:00) Condition: Stable (08/13/25 16:52) Acetaminophen Tablet (Tylenol Tablet) (08/13/25 17:00) Bedrest With Bathroom Privileg (08/13/25 16:52) Vital Signs Date Time Temp Pulse Resp B/P (MAP) Pulse Ox O2 Delivery O2 Flow Rate FiO2 08/13/25 16:00 97.8 58 20 135/102 (113) 95 97.8 08/13/25 12:00 97.7 60 20 129/79 (96) 97 97.7 08/13/25 11:40 98.1 89 18 141/99 98 98.1 08/13/25 11:10 97.6 75 20 127/78 (94) 95 97.6 08/13/25 11:10 75 20 95 Room Air* 0 21 08/13/25 10:52 89 Laboratory Tests Test 08/13/25 11:33 Lactic Acid Level 1.5 mmol/L (0.4-2.0) White Blood Count 6.5 10^3/uL (4.4-10.8) Assessment/Plan Assessment/Plan Assessment Toxic encephalopathy Elevated troponin, demand ischemia Polysubstance abuse Plan Admit the patient to [facility] to the hospitalist Maintenance IV fluids Repeat troponin level Monitor for cardiac complaints. Plan discussed with: Patient My Orders Orders - KIERSTEN BETANCOURT Procedure Category Date Status Time Aspirin Tablet PHA 08/14/25 Logged 10:00 Regular Diet DIET 08/13/25 Transmitted Dinner Troponin-I Hs LAB 08/13/25 Logged 18:00 Basic Metabolic Panel LAB 08/14/25 Verified 04:00 Admit ADMIT 08/13/25 Transmitted 16:52 Temazepam (Restoril) PHA 08/13/25 Logged 17:00 Ondansetron Hcl PHA 08/13/25 Logged (Zofran) 17:00 Condition: Stable HI 08/13/25 In Process 16:52 Acetaminophen Tablet PHA 08/13/25 Logged (Tylenol Tablet) 17:00 Bedrest With Bathroom HI 08/13/25 In Process Privileg 16:52 Date of Service: Aug 13, 2025 Billing Provider: KIERSTEN BETANCOURT Common Visit Codes: [id number] INP/OBS CARE (MOD) KIERSTEN BETANCOURT Aug 13, 2025 17:40
--- NOTE | 2025-08-14 13:46 | DVHPN2 ---
Reviewed: Care Plan, H&P, Labs, Medications, Previous Orders, Radiology Changes from previous H/P or p: No Changes General: Per HPI Neurological: Weakness Objective Vitals Vital Signs Date Time Temp Pulse Resp B/P (MAP) Pulse Ox O2 Delivery O2 Flow Rate FiO2 08/14/25 09:00 98.3 64 18 140/96 (111) 96 98.3 08/14/25 07:33 Room Air* 0 21 Intake/Output Intake and Output 08/14/25 06:59 Intake Total 540 ml Balance 540 ml Intake Oral 540 ml # Voids 3 Medications Current Medications Medications Dose Ordered Sig/Paula Route Start Time Stop Time Status Last Admin Dose Admin Aspirin 81 mg DAILY PO 08/14/25 10:00 08/14/25 08:58 81 MG Temazepam 15 mg QHSP PRN PO 08/13/25 22:00 Ondansetron HCl 4 mg Q4HP PRN IV 08/13/25 17:00 08/13/25 18:12 4 MG Acetaminophen 650 mg Q6HP PRN PO 08/13/25 17:00 Laboratory Results Laboratory Tests 08/13/25 11:33 08/14/25 05:13 Chemistry Test 08/14/25 05:13 Calcium Level 8.0 mg/dL (8.7-10.4) L Urinalysis Test 08/13/25 11:15 Urine Color Yellow (Yellow) Urine Clarity Hazy (Clear) H Urine pH 6.5 (5.0-9.0) Urine Specific [place] 1.024 (1.001-1.035) Urine Protein 2+ (Negative) H Urine Ketones Trace (Negative) Urine Blood Negative /uL (Negative) Urine Nitrite Negative (Negative) Urine Bilirubin Negative (Negative) Urine Urobilinogen 2 mg/dL (Negative) H Urine Leukocyte Esterase Negative /uL (Negative) Urine RBC 4 /hpf (0 - 3) Urine Microscopic WBC 5 /HPF (0-3) H Urine Squamous Epithelial Cells Few /hpf (<5) Urine Bacteria None seen /hpf (None Seen) Urine Hyaline Casts Few /lpf (0 - 2) Urine Sperm Present /hpf (None Seen) Urine Glucose Normal mg/dL (Normal) Labs and/or images reviewed: Labs reviewed by me, Image(s) reviewed by me Assessment/Plan Assessment/Plan 45-year-old male presents for evaluation of altered mental status. Patient was found today unresponsive by bystanders at a bus stop. EMS was called patient was altered and diaphoretic. Currently he is alert oriented times four. He reports using methamphetamine and marijuana. Denies chest pain or shortness for breath. No dizziness. No other acute complaints reported. Toxic encephalopathy Elevated troponin, demand ischemia Polysubstance abuse HTN Plan Admit the patient to [facility] to the hospitalist Maintenance IV fluids Repeat troponin level Monitor for cardiac complaints. Plan discussed with: Patient Date of Service: Aug 14, 2025 Billing Provider: LALITA MOREAU DO Common Visit Codes: [id number] INP/OBS CARE(HIGH) LALITA MOREAU DO Aug 14, 2025 13:46
[2025-08-15] VITALS (8 sets, daily range): BP systolic 127–155; BP diastolic 85–94; PULSE 54–78; RESP 16–19; TEMP 98–100.4; O2SAT 98–100
[2025-08-15] MEDS: ACETAMINOPHEN 325 MG TAB PO PRN (14:00)
[2025-08-16] VITALS (9 sets, daily range): BP systolic 127–151; BP diastolic 89–102; PULSE 60–79; RESP 16–18; TEMP 97.5–99.7; O2SAT 98–100
[2025-08-16 16:07] LABS: Hematocrit 39.5 % (41.0-53.0); Hemoglobin 13.6 g/dL (13.5-17.5); Mean Corpuscular Hemoglobin 31.9 pg (28.0-32.0); Mean Corpuscular Volume 92.9 fL (80.0-100.0); Nucleated Red Blood Cells % 0.0 %
[2025-08-16 16:24] LABS: Alanine Aminotransferase 32 U/L (7-40); Albumin 3.7 g/dL (3.2-4.8); Alkaline Phosphatase 74 U/L (46-116); Anion Gap 9 (5-15); BUN/Creatinine Ratio 19.8 (10.0-20.0); Blood Urea Nitrogen 20 mg/dL (9-23); Carbon Dioxide 27 mmol/L (20-31); Chloride 106 mmol/L (98-107); Glucose 98 mg/dL (74-106); Potassium 4.2 mmol/L (3.5-5.1); Sodium 142 mmol/L (136-145); Total Protein 6.1 g/dL (5.7-8.2)
[2025-08-16 16:25] LABS: Bilirubin, Total 0.3 mg/dL (0.2-1.0); Calcium 8.7 mg/dL (8.7-10.4)
--- NOTE | 2025-08-16 21:23 | DVHPN2 ---
Reviewed: Care Plan, H&P, Labs, Medications, Previous Orders, Radiology Changes from previous H/P or p: No Changes General: Per HPI Neurological: Weakness Objective Vitals Vital Signs Date Time Temp Pulse Resp B/P (MAP) Pulse Ox O2 Delivery O2 Flow Rate FiO2 08/16/25 17:00 99.7 75 18 138/99 (112) 99 99.7 08/16/25 08:00 Room Air* 0 21 Intake/Output Intake and Output 08/16/25 07:00 Intake Total 1700 ml Balance 1700 ml Intake Oral 1700 ml # Voids 11 # Bowel Movements 1 General Appearance: Alert, Oriented X3, Cooperative Cardiovascular: Regular rate, Normal S1, Normal S2 Medications Current Medications Medications Dose Ordered Sig/Paula Route Start Time Stop Time Status Last Admin Dose Admin Aspirin 81 mg DAILY PO 08/14/25 10:00 08/16/25 10:00 81 MG Temazepam 15 mg QHSP PRN PO 08/13/25 22:00 Ondansetron HCl 4 mg Q4HP PRN IV 08/13/25 17:00 08/13/25 18:12 4 MG Acetaminophen 650 mg Q6HP PRN PO 08/13/25 17:00 08/16/25 20:49 650 MG Laboratory Results Laboratory Tests 08/16/25 15:54 Chemistry Test 08/16/25 15:54 Albumin 3.7 g/dL (3.2-4.8) Calcium Level 8.7 mg/dL (8.7-10.4) Total Protein 6.1 g/dL (5.7-8.2) LFT Test 08/16/25 15:54 Alanine Aminotransferase (ALT) 32 U/L (7-40) Alkaline Phosphatase 74 U/L (46-116) Aspartate Amino Transferase (AST) 21 U/L (13-40) Total Bilirubin 0.3 mg/dL (0.2-1.0) Urinalysis Test 08/13/25 11:15 Urine Color Yellow (Yellow) Urine Clarity Hazy (Clear) H Urine pH 6.5 (5.0-9.0) Urine Specific [place] 1.024 (1.001-1.035) Urine Protein 2+ (Negative) H Urine Ketones Trace (Negative) Urine Blood Negative /uL (Negative) Urine Nitrite Negative (Negative) Urine Bilirubin Negative (Negative) Urine Urobilinogen 2 mg/dL (Negative) H Urine Leukocyte Esterase Negative /uL (Negative) Urine RBC 4 /hpf (0 - 3) Urine Microscopic WBC 5 /HPF (0-3) H Urine Squamous Epithelial Cells Few /hpf (<5) Urine Bacteria None seen /hpf (None Seen) Urine Hyaline Casts Few /lpf (0 - 2) Urine Sperm Present /hpf (None Seen) Urine Glucose Normal mg/dL (Normal) Labs and/or images reviewed: Labs reviewed by me, Image(s) reviewed by me Assessment/Plan Assessment/Plan 45-year-old male presents for evaluation of altered mental status. Patient was found today unresponsive by bystanders at a bus stop. EMS was called patient was altered and diaphoretic. Currently he is alert oriented times four. He reports using methamphetamine and marijuana. Denies chest pain or shortness for breath. No dizziness. No other acute complaints reported. Toxic encephalopathy Elevated troponin, demand ischemia Polysubstance abuse HTN improving Plan discussed with: Patient My Orders Orders - LALITA MOREAU DO Procedure Category Date Status Time Discharge DISCHARGE 08/16/25 Transmitted 14:54 Date of Service: Aug 15, 2025 Billing Provider: LALITA MOREAU DO Common Visit Codes: [id number] INP/OBS CARE(HIGH) LALITA MOREAU DO Aug 16, 2025 21:23
--- NOTE | 2025-08-16 21:24 | DVHDS2 ---
Discharge Summary Date of Admission Aug 13, 2025 at 16:52 Date of Discharge: Aug 16, 2025 Labs/Diagnostic Data: Laboratory Results Test 08/16/25 15:54 08/13/25 18:28 08/13/25 11:33 08/13/25 11:15 White Blood Count 8.0 10^3/uL (4.4-10.8) Red Blood Count 4.25 10^6/uL (4.5-5.90) Hemoglobin 13.6 g/dL (13.5-17.5) Hematocrit 39.5 % (41.0-53.0) Mean Corpuscular Volume 92.9 fL (80.0-100.0) Mean Corpuscular Hemoglobin 31.9 pg (28.0-32.0) Mean Corpuscular Hemoglobin Concent 34.4 g/dL (32.0-36.0) Red Cell Distribution Width 14.0 % (11.8-14.3) Platelet Count 390 10^3/uL (140-450) Mean Platelet Volume 7.0 fL (6.9-10.8) Neutrophils (%) (Auto) 65.1 % (37.0-80.0) Lymphocytes (%) (Auto) 24.6 % (10.0-50.0) Monocytes (%) (Auto) 8.7 % (0.0-12.0) Eosinophils (%) (Auto) 0.9 % (0.0-7.0) Basophils (%) (Auto) 0.7 % (0.0-2.0) Neutrophils # (Auto) 5.2 10 ^3/uL (1.6-8.6) Lymphocytes # (Auto) 2.0 10 ^3/uL (0.4-5.4) Monocytes # (Auto) 0.7 10 ^3/uL (0-1.3) Eosinophils # (Auto) 0.1 10 ^3/uL (0-0.8) Basophils # (Auto) 0.1 10 ^3/uL (0-0.2) Nucleated Red Blood Cells 0.0 % Sodium Level 142 mmol/L (136-145) Potassium Level 4.2 mmol/L (3.5-5.1) Chloride Level 106 mmol/L (98-107) Carbon Dioxide Level 27 mmol/L (20-31) Anion Gap 9 (5-15) Blood Urea Nitrogen 20 mg/dL (9-23) Creatinine 1.01 mg/dL (0.700-1.30) Glomerular Filtration Rate Calc 95 mL/min (>90) BUN/Creatinine Ratio 19.8 (10.0-20.0) Serum Glucose 98 mg/dL (74-106) Calcium Level 8.7 mg/dL (8.7-10.4) Total Bilirubin 0.3 mg/dL (0.2-1.0) Aspartate Amino Transferase (AST) 21 U/L (13-40) Alanine Aminotransferase (ALT) 32 U/L (7-40) Alkaline Phosphatase 74 U/L (46-116) Total Protein 6.1 g/dL (5.7-8.2) Albumin 3.7 g/dL (3.2-4.8) Troponin I High Sensitivity 73 ng/L (</=54) Lactic Acid Level 1.5 mmol/L (0.4-2.0) B-Type Natriuretic Peptide 101.85 pg/mL (0-100) Urine Color Yellow (Yellow) Urine Clarity Hazy (Clear) Urine pH 6.5 (5.0-9.0) Urine Specific [place] 1.024 (1.001-1.035) Urine Protein 2+ (Negative) Urine Ketones Trace (Negative) Urine Blood Negative /uL (Negative) Urine Nitrite Negative (Negative) Urine Bilirubin Negative (Negative) Urine Urobilinogen 2 mg/dL (Negative) Urine Leukocyte Esterase Negative /uL (Negative) Urine RBC 4 /hpf (0 - 3) Urine Microscopic WBC 5 /HPF (0-3) Urine Squamous Epithelial Cells Few /hpf (<5) Urine Bacteria None seen /hpf (None Seen) Urine Hyaline Casts Few /lpf (0 - 2) Urine Sperm Present /hpf (None Seen) Urine Glucose Normal mg/dL (Normal) Other Laboratory Tests 08/16/25 15:54 Brief Hx & Hospital Course: 45-year-old male presents for evaluation of altered mental status. Patient was found today unresponsive by bystanders at a bus stop. EMS was called patient was altered and diaphoretic. Currently he is alert oriented times four. He reports using methamphetamine and marijuana. Denies chest pain or shortness for breath. No dizziness. No other acute complaints reported. Toxic encephalopathy Elevated troponin, demand ischemia Polysubstance abuse HTN improved discharged to home Condition at Discharge: Fair Final Diagnosis/Problems List see above Discharge Disposition: Home Discharge Instruct/Medications Diet: Cardiac 2g Na,low cholest Activity: No Restrictions, As Tolerated Scheduled Cephalexin (Keflex Capsule), 1 CAP PO QID Cephalexin Monohydrate (Cephalexin), 500 MG PO QID Doxycycline Monohydrate (Doxycycline Monohydrate), 1 CAP PO BID Gentamicin Sulfate (Gentamicin Sulfate), 1 DROP LEFTEYE QID Sulfamethoxazole-Trimethoprim (Bactrim), 1 TAB PO BID Scheduled PRN Ibuprofen (Ibuprofen), 800 MG PO Q8HP PRN Ibuprofen (Ibuprofen), 1 TAB PO Q6HP PRN Discharge Statement: "Patient was advised to return to the ER or call 911 if any headaches, dizziness, shortness of breath, chest pain, abdominal pain, bleeding, fevers, or worsening of medical condition. Patient was counseled about treatment plan, medications, possible side effects, patientverbalized understanding. All questions were answered to the best of my ability. This discharge took greater then 30 minutes in planning, reviewing documentation, counseling the patient, and discussing with other team members." ASSESSMENT ASSESSMENT Assessment Date of Service: Aug 16, 2025 Billing Provider: LALITA MOREAU DO Common Visit Codes: [id number] DISCH DAY >30min LALITA MOREAU DO Aug 16, 2025 21:24
[2025-08-17 01:00] VITALS: BP 128/95; PULSE 66; RESP 17; TEMP 98.1; O2SAT 99
[2025-08-17 05:00] VITALS: BP 139/89; PULSE 59; RESP 17; TEMP 98.1; O2SAT 99
[2025-08-17 08:00] VITALS: PULSE 66
[2025-08-17 09:00] VITALS: BP 135/86; PULSE 63; RESP 18; TEMP 96.7; O2SAT 99
--- NOTE | 2025-08-17 13:16 | DVHDS2 ---
Discharge Summary Date of Admission Aug 13, 2025 at 16:52 Date of Discharge: Aug 16, 2025 Labs/Diagnostic Data: Laboratory Results Test 08/16/25 15:54 08/13/25 18:28 08/13/25 11:33 08/13/25 11:15 White Blood Count 8.0 10^3/uL (4.4-10.8) Red Blood Count 4.25 10^6/uL (4.5-5.90) Hemoglobin 13.6 g/dL (13.5-17.5) Hematocrit 39.5 % (41.0-53.0) Mean Corpuscular Volume 92.9 fL (80.0-100.0) Mean Corpuscular Hemoglobin 31.9 pg (28.0-32.0) Mean Corpuscular Hemoglobin Concent 34.4 g/dL (32.0-36.0) Red Cell Distribution Width 14.0 % (11.8-14.3) Platelet Count 390 10^3/uL (140-450) Mean Platelet Volume 7.0 fL (6.9-10.8) Neutrophils (%) (Auto) 65.1 % (37.0-80.0) Lymphocytes (%) (Auto) 24.6 % (10.0-50.0) Monocytes (%) (Auto) 8.7 % (0.0-12.0) Eosinophils (%) (Auto) 0.9 % (0.0-7.0) Basophils (%) (Auto) 0.7 % (0.0-2.0) Neutrophils # (Auto) 5.2 10 ^3/uL (1.6-8.6) Lymphocytes # (Auto) 2.0 10 ^3/uL (0.4-5.4) Monocytes # (Auto) 0.7 10 ^3/uL (0-1.3) Eosinophils # (Auto) 0.1 10 ^3/uL (0-0.8) Basophils # (Auto) 0.1 10 ^3/uL (0-0.2) Nucleated Red Blood Cells 0.0 % Sodium Level 142 mmol/L (136-145) Potassium Level 4.2 mmol/L (3.5-5.1) Chloride Level 106 mmol/L (98-107) Carbon Dioxide Level 27 mmol/L (20-31) Anion Gap 9 (5-15) Blood Urea Nitrogen 20 mg/dL (9-23) Creatinine 1.01 mg/dL (0.700-1.30) Glomerular Filtration Rate Calc 95 mL/min (>90) BUN/Creatinine Ratio 19.8 (10.0-20.0) Serum Glucose 98 mg/dL (74-106) Calcium Level 8.7 mg/dL (8.7-10.4) Total Bilirubin 0.3 mg/dL (0.2-1.0) Aspartate Amino Transferase (AST) 21 U/L (13-40) Alanine Aminotransferase (ALT) 32 U/L (7-40) Alkaline Phosphatase 74 U/L (46-116) Total Protein 6.1 g/dL (5.7-8.2) Albumin 3.7 g/dL (3.2-4.8) Troponin I High Sensitivity 73 ng/L (</=54) Lactic Acid Level 1.5 mmol/L (0.4-2.0) B-Type Natriuretic Peptide 101.85 pg/mL (0-100) Urine Color Yellow (Yellow) Urine Clarity Hazy (Clear) Urine pH 6.5 (5.0-9.0) Urine Specific [place] 1.024 (1.001-1.035) Urine Protein 2+ (Negative) Urine Ketones Trace (Negative) Urine Blood Negative /uL (Negative) Urine Nitrite Negative (Negative) Urine Bilirubin Negative (Negative) Urine Urobilinogen 2 mg/dL (Negative) Urine Leukocyte Esterase Negative /uL (Negative) Urine RBC 4 /hpf (0 - 3) Urine Microscopic WBC 5 /HPF (0-3) Urine Squamous Epithelial Cells Few /hpf (<5) Urine Bacteria None seen /hpf (None Seen) Urine Hyaline Casts Few /lpf (0 - 2) Urine Sperm Present /hpf (None Seen) Urine Glucose Normal mg/dL (Normal) Other Laboratory Tests 08/16/25 15:54 Brief Hx & Hospital Course: 45-year-old male presents for evaluation of altered mental status. Patient was found today unresponsive by bystanders at a bus stop. EMS was called patient was altered and diaphoretic. Currently he is alert oriented times four. He reports using methamphetamine and marijuana. Denies chest pain or shortness for breath. No dizziness. No other acute complaints reported. Toxic encephalopathy Elevated troponin, demand ischemia Polysubstance abuse HTN improved discharged to home Condition at Discharge: Fair Final Diagnosis/Problems List Toxic encephalopathy Elevated troponin, demand ischemia Polysubstance abuse HTN Discharge Disposition: Home Discharge Instruct/Medications Diet: Cardiac 2g Na,low cholest Activity: No Restrictions, As Tolerated Scheduled Cephalexin (Keflex Capsule), 1 CAP PO QID Cephalexin Monohydrate (Cephalexin), 500 MG PO QID Doxycycline Monohydrate (Doxycycline Monohydrate), 1 CAP PO BID Gentamicin Sulfate (Gentamicin Sulfate), 1 DROP LEFTEYE QID Sulfamethoxazole-Trimethoprim (Bactrim), 1 TAB PO BID Scheduled PRN Ibuprofen (Ibuprofen), 800 MG PO Q8HP PRN Ibuprofen (Ibuprofen), 1 TAB PO Q6HP PRN Discharge Statement: "Patient was advised to return to the ER or call 911 if any headaches, dizziness, shortness of breath, chest pain, abdominal pain, bleeding, fevers, or worsening of medical condition. Patient was counseled about treatment plan, medications, possible side effects, patientverbalized understanding. All questions were answered to the best of my ability. This discharge took greater then 30 minutes in planning, reviewing documentation, counseling the patient, and discussing with other team members." ASSESSMENT ASSESSMENT Assessment see above Date of Service: Aug 17, 2025 Billing Provider: MARGARETTE SAENZ MD Common Visit Codes: [id number] DISCH DAY >30min MARGARETTE SAENZ MD Aug 17, 2025 13:16
== END 2025-08-17 13:00 | disposition home or self-care (01) | DRG 52 ==
LOC: ER 10:47 → EDBD 10:47 → OVERFLOW 16:52 → WEST WING 17:49 → TELE-WESTW 08-14 02:50
PROVIDERS: ADMIT Hospitalist; ATTEND Hospitalist
DX: G92.8 Other toxic encephalopathy (principal); I24.89 Other forms of acute ischemic heart disease; I10 Essential (primary) hypertension; F17.210 Nicotine dependence, cigarettes, uncomplicated; F19.10 Other psychoactive substance abuse, uncomplicated; F15.90 Other stimulant use, unspecified, uncomplicated; F12.90 Cannabis use, unspecified, uncomplicated; Z59.00 Homelessness unspecified
CPT/HCPCS: 36415; 70450; 71045; 80048; 80053; 81001; 83605; 83880; 84484; 85025; 93005; 96374; 99291; G0378; J2405